=== PATIENT | female | born 1970 | race Caucasian/White ===

== ENCOUNTER 2020-03-23 08:16 | Outpatient (REF) | payer OTHER, SELFPAY | END 2020-03-23 08:17 | disposition home or self-care (01) | LOC: HO.LAB 08:16 | PROVIDERS: Visit Provider Internal Medicine | DX: Z20.828 Contact with and (suspected) exposure to other viral communicable diseases (principal) | CPT/HCPCS: C9803; U0003 ==

== ENCOUNTER 2020-08-29 08:11 | Outpatient (REF) | payer OTHER, SELFPAY | END 2020-08-29 08:12 | disposition home or self-care (01) | LOC: HO.LAB 08:11 | PROVIDERS: Visit Provider Internal Medicine | DX: Z20.822 Contact with and (suspected) exposure to COVID-19 (principal) | CPT/HCPCS: C9803; U0003; U0005 ==

== ENCOUNTER 2021-06-04 13:00 | Outpatient (REF) | payer OTHER, MEDICAID, SELFPAY ==
[2021-06-04 14:20] LABS: COVID-19 Test Negative (Negative)
== END 2021-06-04 13:01 | disposition home or self-care (01) ==
LOC: HO.LAB 13:00
PROVIDERS: Visit Provider Internal Medicine
DX: Z20.822 Contact with and (suspected) exposure to COVID-19 (principal)
CPT/HCPCS: 87635; C9803